=== PATIENT | female | born 1955 | race Caucasian/White ===

== ENCOUNTER 2023-07-04 15:35 | Emergency (ER) | payer MEDICARE, MEDICAID ==
[~2023-07-04] VITALS: Ht 152.4 cm; Wt 84.0 kg
[~2023-07-04 15:35] MED LIST: ASPI-1497 PO; LISI20TA31 PO
[2023-07-04 15:58] VITALS: BP 141/61; PULSE 81; RESP 18; TEMP 98.2; O2SAT 99
[2023-07-04 16:56] LABS: BASOPHILS % 0.8 % (0.0-2.0); EOSINOPHILS % 1.2 % (0.0-5.0); HEMATOCRIT. 40.6 % (36.0-48.0); HEMOGLOBIN. 13.3 g/dL (12.0-16.0); LYMPHOCYTES % 46.1 % (20.0-50.0); MEAN CORPUSCULAR HEMOGLOBIN 30.4 pg (28.0-32.0); MEAN CORPUSCULAR HGB CONC 32.9 g/dL (31.0-37.0); MEAN CORPUSCULAR VOLUME 92.6 fL (81.0-99.0); MEAN PLATELET VOLUME 8.6 fl (7.4-10.4); MONOCYTES % 11.1 % (2.0-8.0); NEUTROPHILS % 40.8 % (40.0-76.0); PLATELET 176 x1000/uL (130-400); RED BLOOD CELL COUNT 4.38 mill/uL (4.2-5.4); RED CELL DISTRIBUTION WIDTH 14.6 % (11.6-14.6); WHITE BLOOD COUNT 3.4 x1000/uL (4.5-11.0)
[2023-07-04 17:10] LABS: CHLORIDE 108 mEq/L (98-107); POTASSIUM 3.9 mEq/L (3.5-5.1); SODIUM 138 mEq/L (136-145)
[2023-07-04 17:11] LABS: CARBON DIOXIDE 28 mEq/L (21-32)
[2023-07-04 17:12] LABS: CALCIUM 9.7 mg/dL (8.7-10.4)
[2023-07-04 17:16] LABS: CREATININE 0.9 mg/dL (0.6-1.0); GLUCOSE 131 mg/dL (70-105); UREA NITROGEN BLOOD 18 mg/dL (9-23)
[2023-07-04 17:17] LABS: TROPONIN I HIGH SENSITIVITY 6 ng/L (3.0-34)
[2023-07-04 17:18] LABS: ALANINE AMINOTRANSFERASE 13 IU/L (10-49); ASPARTATE AMINOTRANSFERASE 22 IU/L (<34)
[2023-07-04 17:19] LABS: BILIRUBIN TOTAL 0.9 mg/dL (0.1-1.0)
[2023-07-04] MEDS ORDERED: FAMO-135 MT (20:40)
[2023-07-04] MEDS ORDERED: CIPR750T4 MT (20:40)
[2023-07-04] MEDS ORDERED: LOPE2CAP MT (20:40)
== END 2023-07-04 21:03 | disposition home or self-care (01) ==
LOC: ER 15:35
DX: A08.39 Other viral enteritis (principal); D25.9 Leiomyoma of uterus, unspecified; R10.816 Epigastric abdominal tenderness; E11.9 Type 2 diabetes mellitus without complications; I10 Essential (primary) hypertension; I25.2 Old myocardial infarction; Z98.890 Other specified postprocedural states
CPT/HCPCS: 36415; 74176; 80053; 84484; 85025; 99284